=== PATIENT | female | born 1930 | race Caucasian/White ===

== ENCOUNTER 2017-01-06 17:07 | Emergency (ER) | payer MEDICARE, OTHER ==
[~2017-01-06] VITALS: Ht 165.1 cm; Wt 65.9 kg
[~2017-01-06 17:07] MED LIST: ASPIRIN 81M81 MG/TA2 PO; ATROVENTNS0.03% NS; AVALIDE 12.5 MG1 TA1 PO; BETAPACE 80MG80 MG PO; BLOOD PRESSURE MED; CHOLESTEROL MED; COZAAR 50MG50 MG/TAB PO; FLAX OIL1000 MG PO; GLUCOSAMIN 500 PO; GLUCOSAMINE500 M1 PO; HCTZ 25MG TAB25 MG PO; LIPITOR 10MG10 MG PO; LUTEIN 15 MG-0.1 SGL PO; MULTAQ400 MG PO; NATURAL FLAX1000 MG PO; NORVASC2.5 MG PO; ONE DAILY1 TA1 PO; PLAVIX 75MG TAB75 MG PO; PRIL40 PO; PROTONIX 40MG T40 MG PO; REMERON 15M15 MG/TA1 PO; THEO-24 20200 MG/CAP PO; THEO-DUR 2200 MG/TAB PO; TRICOR145 MG PO; TYLENOL 325MG325 MG PO; ZOFRAN 4MG T4 MG/TAB PO; ZOFRAN ODT8 MG PO; ZYLOPRIM 100MG100 MG PO
[2017-01-06 17:14] VITALS: BP 180/112; PULSE 74; TEMP 98.3
[2017-01-06] MEDS ORDERED: PROTONIX 40MG T40 MG PO (18:07)
[2017-01-06] MEDS ORDERED: NORCOELIX PO (18:52)
== END 2017-01-06 19:10 | disposition home or self-care (01) ==
LOC: COL.ER 17:07
DX: S82.832A Other fracture of upper and lower end of left fibula, initial encounter for closed fracture (principal); S60.222A Contusion of left hand, initial encounter; S60.221A Contusion of right hand, initial encounter; W01.198A Fall on same level from slipping, tripping and stumbling with subsequent striking against other object, initial encounter
CPT/HCPCS: L2114

== ENCOUNTER 2017-04-30 08:44 | Inpatient (IN) | payer MEDICARE, OTHER ==
[~2017-04-30] VITALS: Ht 162.6 cm; Wt 65.6 kg
[~2017-04-30 08:44] MED LIST changes: +NORCOELIX PO
[2017-04-30 09:29] LABS: BASO % 0.7 % (0.0-2.0); EOS # 0.1 (0.0-0.7); EOS % 1.8 % (0-4.0); GRAN # 3.2 (1.4-6.5); GRAN % 56.9 % (42.2-75.2); HEMATOCRIT 46.5 % (37.0-47.0); LYMPH # 1.7 (1.2-3.4); LYMPH % 30.1 % (20.0-51.0); MEAN CELL VOLUME 90 fl (80.0-100.0); MEAN CORPUSCULAR HEMOGLOBIN 29 pg (27.0-31.0); MEAN CORPUSCULAR HGB CONC 32 g/dl (33.0-37.0); MEAN PLATELET VOLUME 12.2 fl (7.4-10.4); MONO # 0.6 (0.1-0.6); MONO % 10.1 % (1.7-9.3); PLATELET COUNT 107 K/mm3 (130-400); RED BLOOD COUNT 5.17 M/mm3 (4.10-5.30); REDCELL DISTRIBUTION WIDTH-CV 13.7 % (11.5-14.5); WHITE BLOOD COUNT 5.7 K/mm3 (4.8-10.8)
[2017-04-30 09:31] LABS: INR 1.1 (0.8-3.0); PROTHROMBIN TIME 12.2 SECONDS (9.7-12.8)
[2017-04-30 10:58] LABS: PH 6 (5-8); SQUAMOUS EPITHELIAL 0-2 /hpf; URINE APPEARANCE Clear; URINE BACTERIA None Seen /hpf; URINE BILIRUBIN Negative (NEGATIVE); URINE BLOOD Negative (NEGATIVE); URINE COLOR Straw; URINE GLUCOSE Negative (NEGATIVE); URINE KETONE Negative (NEGATIVE); URINE RBC 0-2 /hpf; URINE UROBILINOGEN Negative (NEGATIVE); URINE WBC 0-2 /hpf
[2017-04-30 10:59] LABS: ADJUSTED CALCIUM 9.3 mg/dL (8.4-10.2); ALANINE AMINOTRANSFERASE 35 U/L (9-52); ALBUMIN 3.9 gm/dL (3.5-5.0); ALKALINE PHOSPHATASE 106 U/L (50-136); ANION GAP 11 mmol/L (7-16); BILIRUBIN,TOTAL 1.7 mg/dL (0.0-1.0); BLOOD UREA NITROGEN 29 mg/dL (7-17); CALCIUM 9.2 mg/dL (8.4-10.2); CARBON DIOXIDE 24 mmol/L (22-30); CHLORIDE 104 mmol/L (98-107); CREATININE, serum 1.19 mg/dL (0.52-1.25); GLUCOSE 91 mg/dL (74-106); SODIUM 139 mmol/L (137-145); TOTAL PROTEIN 7.2 gm/dL (6.4-8.2)
[2017-04-30 11:07] LABS: C-REACTIVE PROTEIN < 0.5 mg/dL (0.0-0.9)
[2017-04-30 13:04] VITALS: BP 179/68; PULSE 60; TEMP 98.3
[2017-04-30 16:27] VITALS: BP 144/85; PULSE 54; TEMP 99.1
[2017-04-30 21:06] VITALS: BP 167/71; PULSE 59; TEMP 97.9
[2017-05-01] VITALS (7 sets, daily range): BP systolic 127–184; BP diastolic 44–99; PULSE 51–81; TEMP 97.6–98.1
[2017-05-01 07:58] LABS: BASO % 0.6 % (0.0-2.0); EOS # 0.1 (0.0-0.7); EOS % 2.2 % (0-4.0); GRAN # 2.6 (1.4-6.5); GRAN % 56.5 % (42.2-75.2); HEMATOCRIT 45.9 % (37.0-47.0); HEMOGLOBIN 15.2 g/dl (12.5-16.0); LYMPH # 1.3 (1.2-3.4); LYMPH % 28.6 % (20.0-51.0); MEAN CELL VOLUME 87 fl (80.0-100.0); MEAN CORPUSCULAR HEMOGLOBIN 29 pg (27.0-31.0); MEAN CORPUSCULAR HGB CONC 33 g/dl (33.0-37.0); MEAN PLATELET VOLUME 11.9 fl (7.4-10.4); MONO # 0.6 (0.1-0.6); MONO % 11.9 % (1.7-9.3); PLATELET COUNT 105 K/mm3 (130-400); RED BLOOD COUNT 5.27 M/mm3 (4.10-5.30); REDCELL DISTRIBUTION WIDTH-CV 13.4 % (11.5-14.5); WHITE BLOOD COUNT 4.6 K/mm3 (4.8-10.8)
[2017-05-01 08:17] LABS: CALCIUM 9.1 mg/dL (8.4-10.2); CREATININE, serum 1.05 mg/dL (0.52-1.25)
[2017-05-02] VITALS (13 sets, daily range): BP systolic 129–174; BP diastolic 46–83; PULSE 49–93; TEMP 97.6–97.8
[2017-05-03 00:40] VITALS: BP 142/65; PULSE 60; TEMP 97.6
[2017-05-03 04:11] VITALS: BP 131/62; PULSE 57; TEMP 98.6
[2017-05-03 09:15] VITALS: BP 168/70; PULSE 58; TEMP 97.6
[2017-05-03] MEDS ORDERED: ELIQUIS 5MG PO (09:51)
[2017-05-03 12:14] VITALS: BP 168/70; PULSE 58; TEMP 97.6
== END 2017-05-03 13:39 | DRG 42 ==
LOC: COL.ER 08:44 → MEDICAL 11:20
PROVIDERS: Family Medicine
PROC: 0JH632Z Insertion of Monitoring Device into Chest Subcutaneous Tissue and Fascia, Percutaneous Approach (ICD-10-PCS; principal; 2017-05-02)
DX: I63.442 Cerebral infarction due to embolism of left cerebellar artery (principal); G83.21 Monoplegia of upper limb affecting right dominant side; R47.01 Aphasia; R41.840 Attention and concentration deficit; I10 Essential (primary) hypertension; I48.91 Unspecified atrial fibrillation; J44.9 Chronic obstructive pulmonary disease, unspecified; I63.9 Cerebral infarction, unspecified; I08.3 Combined rheumatic disorders of mitral, aortic and tricuspid valves
CPT/HCPCS: 99223-AI; 99232-AI; 99239; C1764; J2060; J2250; J3010; J7030

== ENCOUNTER → 2017-06-14 | Outpatient (REF) ==
[~2017-06-14] MED LIST changes: +ELIQUIS 5MG PO
[2017-06-14 10:01] LABS: HEMATOCRIT 47.1 % (37.0-47.0); HEMOGLOBIN 15.5 g/dl (12.5-16.0); MEAN CELL VOLUME 90 fl (80.0-100.0); MEAN CORPUSCULAR HEMOGLOBIN 30 pg (27.0-31.0); MEAN CORPUSCULAR HGB CONC 33 g/dl (33.0-37.0); MEAN PLATELET VOLUME 12.4 fl (7.4-10.4); PLATELET COUNT 139 K/mm3 (130-400); RED BLOOD COUNT 5.24 M/mm3 (4.10-5.30); REDCELL DISTRIBUTION WIDTH-CV 14.3 % (11.5-14.5); WHITE BLOOD COUNT 7.8 K/mm3 (4.8-10.8)
[2017-06-14 10:05] LABS: PH 5 (5-8); SQUAMOUS EPITHELIAL 0-2 /hpf; URINE APPEARANCE Clear; URINE BACTERIA Rare /hpf; URINE BILIRUBIN Negative (NEGATIVE); URINE BLOOD Negative (NEGATIVE); URINE COLOR Amber; URINE GLUCOSE Negative (NEGATIVE); URINE KETONE Negative (NEGATIVE); URINE UROBILINOGEN Negative (NEGATIVE)
[2017-06-14 10:18] LABS: ADJUSTED CALCIUM 9.5 mg/dL (8.4-10.2); ALBUMIN 4.1 gm/dL (3.5-5.0); BILIRUBIN,TOTAL 2.2 mg/dL (0.0-1.0); CALCIUM 9.6 mg/dL (8.4-10.2); CREATININE, serum 1.1 mg/dL (0.52-1.25); POTASSIUM 4.6 mmol/L (3.4-5.0); TOTAL PROTEIN 7.3 gm/dL (6.4-8.2)
== END ==
LOC: ZLAB.STJ 09:55
PROVIDERS: Family Medicine
DX: Z01.89 Encounter for other specified special examinations (principal)

== ENCOUNTER → 2017-06-17 | Outpatient (CLI) | payer MEDICARE, OTHER | LOC: COL.RAD 07:30 | DX: K80.20 Calculus of gallbladder without cholecystitis without obstruction (principal); J90 Pleural effusion, not elsewhere classified; I51.7 Cardiomegaly; N28.89 Other specified disorders of kidney and ureter; R79.89 Other specified abnormal findings of blood chemistry ==